=== PATIENT | female | born 1985 ===

== ENCOUNTER 2016-09-10 02:14 | Inpatient (IN) | payer MEDICAID ==
[~2016-09-10] VITALS: Ht 165.1 cm; Wt 74.8 kg
[2016-09-10 04:18] LABS: HEMATOCRIT 36.3 % (36.0-48.0); HEMOGLOBIN 12.5 g/dL (12-16); MCH 32.5 pg (26.0-34.0); MCHC 34.4 g/dL (31.0-37.0); MCV 94.3 fL (80.0-100.0); MEAN PLATELET VOLUME 10.5 fL (7.4-10.4); RBC 3.85 10x6/uL (4.00-5.40); WBC 12.2 10x3/uL (4.8-10.8)
--- NOTE | 2016-09-10 05:18 | NUR ---
PT REMAINING IN BR 3 D/T PT RESTING WITH EYES CLOSED AT THIS TIME. PT IS G6 A1 P4 WITH OF PREMATURE INFANT IN ER AT 0218. PT CURRENTLY IN STABLE CONDITION. CONTINUING WITH PP CARE OF THIS PT. PT CURRENTLY RESTING WTIH EYES CLOSED. VSS. WILL CONT TO MONITOR AND ASSIST PRN. BED IN LOW POSITION WITH UPPER SIDE RAILS RAISED X2, CL/PHONE WITHIN REACH. WILL CONT TO MONITOR AND ASSIST PRN.
--- NOTE | 2016-09-10 05:50 | NUR ---
PT UP TO VOID. URINE COLLECTED FOR UDS. FOLLOWING VOID, PT PROVIDED WITH NONSKID SOCKS, AMBULATORY TO ROOM 1278 FOR CONTINUED PP CARE. DENIES PAIN AT THIS TIME. VSS.
[2016-09-10 05:54] VITALS: BP 112/68; Ht 165.1 cm; Wt 74.8 kg
[2016-09-10 06:10] LABS: APTT 30.4 SECONDS (22.8-39.4); INR 0.95 (0.85-1.17); PROTIME 12.5 SECONDS (11.6-15.0)
--- NOTE | 2016-09-10 06:14 | NUR ---
ADMISSION ASSESSMENT COMPLETED. PT ORIENTED TO NEW ROOM. CL/PHONE PLACED WITHIN PT REACH. PT STATES THAT SHE IS HUNGRY. SANDWICH TRAY, JELLO, ICE WATER, AND SODA GIVEN. VERBALIZED APPRECIATION. PT VOICED CONCERN IN NOT KNOWING HOW SHE WOULD REACT TO HEARING A BABY CRY TODAY. DISCUSSED POSSIBLE D/C HOME, PT STATES THAT SHE ISN'T SURE AT THIS TIME. RN PROVIDED SUPPORT TO PATIENT, VERBALIZED APPRECAITION. DENIES ADDITIONAL NEEDS AT THIS TIME.
[2016-09-10 06:25] LABS: UDS - AMPHET NEGATIVE QUAL (NEGATIVE); UDS - BARB NEGATIVE QUAL (NEGATIVE); UDS - BENZO NEGATIVE QUAL (NEGATIVE); UDS - COCAINE NEGATIVE QUAL (NEGATIVE); UDS - METH NEGATIVE QUAL (NEGATIVE); UDS - OPIATE NEGATIVE QUAL (NEGATIVE); UDS - PCP NEGATIVE QUAL (NEGATIVE); UDS - THC NEGATIVE QUAL (NEGATIVE)
--- NOTE | 2016-09-10 06:30 | NUR ---
RN TO PT BS. BEREAVEMENT PAPERWORK DISCUSSED WITH PT. QUESTIONS ANSWERED. PAPERWORK LEFT AT PT BS TO FILL OUT. NAME OF NURSERY RN PROVIDED TO PT, TO ANSWER QUESTIONS. NAME OF LOCAL [facility] PROVIDED TO PT TO CALL TO ASK QUESTIONS IF NEEDED.
--- NOTE | 2016-09-10 07:15 | NUR ---
to pt's room, pt is asleep at this time, resp even and ul, pt not disturbed. srup x2, call light and phone within reach.
--- NOTE | 2016-09-10 09:15 | NUR ---
am assessment completed. see flow sheet. pt denies heavy bleeding or passing clots. see emar for any med adm. pt requests ice water, served. pt also requests to take a shower, clean gown/linens and toothbrush/paste, soap/shampoo and comb, peripads/panties provided. sr up x 2, call light and phone within reach.
[2016-09-10 09:25] VITALS: BP 113/56
--- NOTE | 2016-09-10 12:00 | NUR ---
pt is served lunch by dietary. pt denies needs at this time.
[2016-09-10 12:09] LABS: BASOPHILS 0.1 % (0.0-2.0); HEMATOCRIT 34.4 % (36.0-48.0); HEMOGLOBIN 11.6 g/dL (12-16); IMMATURE GRANULOCYTES 0.4 % (0-5); LYMPHOCYTES 24.6 % (15-50); MCHC 33.7 g/dL (31.0-37.0); MEAN PLATELET VOLUME 10.1 fL (7.4-10.4); MONOCYTES 7.1 % (2-11); NEUTROPHILS 66.8 % (40-80); PLATELET COUNT 186 10x3/uL (130-400); RBC 3.62 10x6/uL (4.00-5.40); WBC 12.5 10x3/uL (4.8-10.8)
[2016-09-10] MEDS ORDERED: PERCOCET 5-3251 TAB PO (13:50)
[2016-09-10] MEDS ORDERED: IBUPROFEN600 MG PO (13:50)
--- NOTE | 2016-09-10 14:23 | NUR ---
PT RESTING ON RIGHT SIDE WITH EYES CLOSED. NO NEEDS.
--- NOTE | 2016-09-10 14:35 | NUR ---
PT UP TO BR TO VOID. C/O CRAMPING. SEE EMAR.
--- NOTE | 2016-09-10 14:45 | NUR ---
D/C INSTRUCTIONS EXPLAINED TO PT. VOICED UNDERSTANDING. COPIES OF ALL GIVEN, WELL WRITTEN RX'S FOR PERCOCET [address] DE LA VEGA. PT AWAITING SIG OTHER TO COME AND SIGN CERTIFICATE AFFADAVIT BEFORE D/C.
--- NOTE | 2016-09-10 15:33 | NUR ---
PT WENT VIA W/C TO MAIN ENTRANCE TO AWAIT TAXI RIDE HOME. TAXI CALLED BETTYE GRANADOS RN.
[2016-09-12 06:14] LABS: RAPID PLASMA REAGIN Non Reactive (Non Reactive)
[2016-09-12 12:16] LABS: HEPATITIS C ANTIBODY <0.1 (0.0-0.9)
[2016-09-12 13:22] LABS: RUBELLA IGG 1.02 index (Immune >0.99)
== END 2016-09-10 15:45 | disposition home or self-care (01) | DRG 775 ==
LOC: D.ER 02:14 → D.LD 02:36
PROVIDERS: ADMIT Specialist
PROC: 10E0XZZ Delivery of Products of Conception, External Approach (ICD-10-PCS; principal; 2016-09-10)
DX: O60.12X0 Preterm labor second trimester with preterm delivery second trimester, not applicable or unspecified (principal); Z3A.25 25 weeks gestation of pregnancy; Z37.0 Single live birth; O99.334 Smoking (tobacco) complicating childbirth; O09.42 Supervision of pregnancy with grand multiparity, second trimester